=== PATIENT | male | born 1975 | race Caucasian/White ===

== ENCOUNTER → 2018-12-18 | Outpatient (CLI) | payer SELFPAY ==
--- NOTE | 2018-12-18 15:59 | REP ---
Clinical: Right upper chest wall pain Technique: Frontal view of the chest with five views of the right hemithorax. Findings: Frontal view of the chest demonstrates no acute cardiopulmonary process. Multiple views of the right hemithorax demonstrates no obvious acute rib fracture or pathology. Impression: Normal right rib series Electronically Signed by Landon Zhang MD 12/18/2018 03:51 P
== END ==
LOC: M LRY 15:19
PROVIDERS: ATTEND Physician Assistant
DX: R07.89 Other chest pain (principal)

== ENCOUNTER 2019-01-31 12:51 | Inpatient (IN) | payer BC, SELFPAY ==
[~2019-01-31] VITALS: Ht 172.7 cm; Wt 66.3 kg
[2019-01-31] MEDS: ASPIRIN 81 MG CHEW TABLET PO SCH (09:00)
[2019-01-31] MEDS ORDERED: IBUP-1022 PO (13:12)
[2019-01-31] MEDS ORDERED: METOCLOPRAMIDE INJ 10MG/2ML VIAL (J2765) IV ONE (15:30)
--- NOTE | 2019-01-31 15:48 | REP ---
CT Head without contrast HISTORY: Vertigo COMPARISON: None An area of decreased attenuation is present in the inferior left cerebellum. This represents an acute infarction. There is mass effect. The fourth ventricle e is midline in position. There is no intraparenchymal hemorrhage, mass or midline shift. The ventricular system is normal in appearance. There is no extra cerebral collection. There is no fracture. The visualized sinuses are clear. IMPRESSION: Acute left cerebellar infarction. There is no hemorrhage. Electronically Signed by Jorge Lomeli MD 01/31/2019 03:40 P
[2019-01-31 16:19] LABS: AMPHETAMINES LEVEL URINE NEGATIVE (NEGATIVE); BARBITURATES URINE NEGATIVE (NEGATIVE); BENZODIAZEPINES URINE NEGATIVE (NEGATIVE); CANNABINOIDS URINE POSITIVE (NEGATIVE); COCAINE METABOLITE URINE NEGATIVE (NEGATIVE); METHADONE URINE NEGATIVE (NEGATIVE); OPIATES URINE NEGATIVE (NEGATIVE); PHENCYCLIDINE URINE NEGATIVE (NEGATIVE)
[2019-01-31 16:57] LABS: HEMATOCRIT 44.3 % (42.0-52.0); MEAN CORPUSCULAR HEMOGLOBIN 31.1 pg (27.0-33.0); MEAN CORPUSCULAR HGB CONC 33.9 g/dl (32.0-36.5); MEAN CORPUSCULAR VOLUME 91.7 fl (80.0-96.0); PLATELET COUNT, AUTOMATED 218 10^3/uL (150-450); RED BLOOD COUNT 4.83 10^6/uL (4.30-6.10); WHITE BLOOD COUNT 6.8 10^3/uL (4.0-10.0)
[2019-01-31 17:23] LABS: ALBUMIN 3.7 GM/DL (3.2-5.2); ALT/SGPT 21 U/L (12-78); BILIRUBIN,TOTAL 0.4 MG/DL (0.2-1.0); BLOOD UREA NITROGEN 10 MG/DL (7-18); CARBON DIOXIDE LEVEL 28 MEQ/L (21-32); CHLORIDE LEVEL 109 MEQ/L (98-107); CREATININE FOR GFR 0.89 MG/DL (0.70-1.30); ETHYL ALCOHOL (ETHANOL) < 0.003 % (0.000-0.010); GLOMERULAR FILTRATION RATE > 60.0 (>60); GLUCOSE, FASTING 87 MG/DL (70-100); POTASSIUM SERUM 4.3 MEQ/L (3.5-5.1); SODIUM LEVEL 142 MEQ/L (136-145); TOTAL PROTEIN 6.3 GM/DL (6.4-8.2)
[2019-01-31] MEDS ORDERED: ASPIRIN 325 MG TAB PO ONE (17:45)
[2019-01-31] MEDS ORDERED: PROHANCE 279.3MG/ML 5ML VIAL (A9576) As Ordered ONE (18:19)
[2019-01-31] MEDS ORDERED: PROHANCE 279.3MG/ML 15ML VIAL (A9576) As Ordered ONE (18:19)
[2019-01-31] MEDS ORDERED: ACET1TAB55 PO (18:53)
[2019-01-31 19:05] VITALS: BP 123/94
[2019-01-31 19:13] LABS: APPEARANCE, URINE CLEAR (CLEAR); BACTERIA, URINE AUTO NEGATIVE (NEGATIVE); BILIRUBIN, URINE AUTO NEGATIVE (NEGATIVE); BLOOD, URINE BLOOD NEGATIVE (NEGATIVE); CALCIUM OXALATE CRYSTALS SMALL; COLOR, URINE YELLOW (YELLOW); GLUCOSE, URINE (UA) AUTO NEGATIVE (NEGATIVE); KETONE, URINE AUTO TRACE mg/dL (NEGATIVE); LEUKOCYTE ESTERASE, URINE AUTO NEGATIVE (NEGATIVE); MUCUS, URINE SMALL (NEGATIVE); NITRITE, URINE AUTO NEGATIVE (NEGATIVE); PROTEIN, URINE AUTO NEGATIVE (NEGATIVE); RBC, URINE AUTO 2 /HPF (0-3); SPECIFIC GRAVITY URINE AUTO 1.031 (1.002-1.035); SQUAMOUS EPITHELIAL CELL UR AU 0 /HPF (0-6); WBC, URINE AUTO 1 /HPF (0-3)
[2019-01-31] MEDS ORDERED: NICOTINE POLACRILEX 2 MG GUM PO PRN (19:15)
[2019-01-31] MEDS: NICOTINE 14 MG/24 HR TRANSDERMAL TD SCH (19:30)
--- NOTE | 2019-01-31 20:23 | IPN ---
DATE: 01/31/2019 SUBJECTIVE: Pt still c/o headache without radiation, blurred vision, diplopia. no c/o UE or LE weakness bilaterally. Per RN, h/a improved with po tylenol. OBJECTIVE: PHYSICAL EXAMINATION: VITAL SIGNS:pls see below GENERAL: Patient is awake, alert, oriented times three. Answering questions appropriately. HEENT: Pupils are round, reactive to light and accommodation. Extraocular muscles are intact. There is no horizontal or vertical nystagmus. Face is symmetric. LUNGS:CTAB air entry is equal B/L no wheezing, rales, or rhonchi. no kyphosis HEART:S1S2 sinus bradycardia no murmurs noted. ABD:(+) bs soft nontender nondistended no HSM EXT: no cyanosis, clubbing or edema NEURO: Patient is awake, alert, oriented times three. Answering questions appropriately. HEENT: Pupils are round, reactive to light and accommodation. Extraocular muscles are intact. Muscles are intact. There is no horizontal or vertical nystagmus. Face is symmetric. There is no facial drooping or asymmetry. Speech is fluent and choice of words are appropriate. There is no dysmetria on finger to nose testing. There is no pronator drift. Patient is noted to have 5 out of 5 motor strength in the bilateral upper and lower extremities. Deep tendon reflexes are intact. Recent and distant memory is intact. No facial weakness.Tongue and uvula are midline. Normal sensation throughout. There is no dysmetria. His gait is mildly unsteady and he is unable to do tandem walking. Plantars are downgoing. There is no tremor. EKG: Sinus bradycardia. Ventricular rate of 53. RI interval 180, QT of 422 and QTC of 404. LABORATORY DATA, IMAGING STUDIES, MICROBIOLOGY: PLS SEE BELOW On admission: White count 6.8, hemoglobin 15, hematocrit 44, platelet count 218. Sodium 142, potassium 4.3, chloride 109, bicarbonate 28, BUN 10, creatinine 0.89. Glucose 87, calcium 90, bilirubin 0.4, ALC 19, ALT 21, alkaline phosphatase of 70. Albumin 3.7. Urine toxicology screen positive for cannabinoids. Ethyl alcohol less than 0.003. Urinalysis is pending. CT of the head 01/31/2018 1523 hours. Areas of decreased attenuation in the inferior left cerebellum representing an acute infarct with mass effect. Fourth ventricle is midline in position. No intraparenchymal hemorrhage, mass or midline shift. Ventricular system is normal in appearance. There is no extracerebral collection. There is no fracture. There is no hemorrhage. MRI BRAIN 01/31/19: MRA BRAIN 01/31/19: MRA CAROTIDS 01/31/19: ASSESSMENT AND PLAN: This is a 43-year-old male with past medical history significant for 20 pack years of smoking, currently smoking a pack of cigarettes per day, kidney stones in the past and previous history of concussion presents to the emergency room with three day history of dizziness. 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 prompting him to kneel down due to the room spinning around him. He then subsequently developed a severe headache in the occipital area, a bit of blurred vision. The headache was described as dull and sharp at times without any radiation with some improvement after taking Tylenol 6 gel caps and ibuprofen. Patient felt very off balance and was swaying more to one side. The blurred vision improved. According to the , the patient was swaggering and he appeared to be much more lethargic laying on the couch more than he usually does. Patient otherwise denies any upper or lower extremity paresthesias or weakness. He denies any dysphagia, slurring of speech. Face was symmetric. He had a prior history of concussion some years ago and had an MRI done in [place]. Currently, evaluation in the ER included a CT of the head which showed a left cerebellar cerebrovascular accident (CVA) with no hemorrhage and some mass effect. According to the , patient was able to walk around, but was noted to be swaggering more to one side in the ER. EKG was sinus rhythm, ventricular rate of 53 with sinus bradycardia. Laboratory data were within normal limits, both CBC and CMP. Urine drug screen was positive for cannabinoids. Ethyl alcohol level was 0.003. Urinalysis is still pending. Hospitalist was called to admit. Subacute left cerebellar infarction. Patient has been given aspirin, Zocor. Blood pressure is within normal limits. reviewed MRI/MRA of the brain, MRA of the carotids transesophageal echocardiogram to rule out PFO. Hypercoagulable workup pending Dr. Hartmann has been consulted for transesophageal echo. He will be kept nothing by mouth (npo) after midnight. IV fluids to be given will NPO Neurochecks q4hrs. PT EVAL and treat. . Dr. Aparicio has been consulted. Old Right lacunar infarct. on ASA. bp is wnl. Active smoking. Tobacco cessation counseling has been provided. He is currently on a nicotine patch with nicotine gum as needed as well. History of kidney stones. Currently has no complaints of dysuria, hematuria or flank pain. Sinus bradycardia. Continue on telemetry for now. Recreational Drug use (+) Urine drug screen: cannabinoids Deep venous thrombosis (DVT) prophylaxis with subcutaneous Lovenox. DISPOSITION: After full workup, physical therapy for clearance. PFS to assist with self-pay ?no insurance. edited: 02/05/2019 [id number] irving PLUNKETT
--- NOTE | 2019-01-31 20:45 | REPVR ---
EXAM: MR Angiography Neck Without Contrast EXAM DATE/TIME: 01/31/2019 5:42 PM CLINICAL HISTORY: 43 years old, male; Signs and symptoms; Weakness; Additional info: Posterior CVA TECHNIQUE: Imaging protocol: Magnetic resonance angiography images of the neck without intravenous contrast. COMPARISON: MRA BRAIN W/O CONTRAST 01/31/2019 7:29 PM FINDINGS: Right common carotid artery: Normal. No significant stenosis. No dissection or occlusion. Right internal carotid artery: Normal. Extracranial segment is patent with no significant stenosis. No dissection or occlusion. Right external carotid artery: Normal. No significant stenosis. No dissection or occlusion. Right vertebral artery: Normal. No significant stenosis. No dissection or occlusion. Left common carotid artery: Normal. No significant stenosis. No dissection or occlusion. Left internal carotid artery: Normal. Extracranial segment is patent with no significant stenosis. No dissection or occlusion. Left external carotid artery: Normal. No significant stenosis. No dissection or occlusion. Left vertebral artery: Normal. No significant stenosis. No dissection or occlusion. IMPRESSION: No evidence of carotid or vertebral artery stenosis or dissection. COMMENT: Reference per NASCET criteria for degree of stenosis: Mild: less than 50% stenosis. Moderate: 50-69% stenosis. Severe: 70-94% stenosis. Near occlusion: 95-99% stenosis. Electronically signed by: Chato Saavedra On 01/31/2019 20:45:01 PM
--- NOTE | 2019-01-31 20:48 | REPVR ---
EXAM: MR Head Without Contrast EXAM DATE/TIME: 01/31/2019 5:42 PM CLINICAL HISTORY: 43 years old, male; Abnormal findings; Abnormal radiologic findings of head/skull; Ischemia; Additional info: Posterior CVA TECHNIQUE: Imaging protocol: MR of the head without contrast. COMPARISON: MRA BRAIN W/O CONTRAST 01/31/2019 7:29 PM, head CT 01/31/2019 FINDINGS: Brain: There is an infarct in the left inferior cerebellar hemisphere medially. This extends over a length of 5.5 cm. This this is an acute infarct is seen on DWI images and confirmed on ADC. Gradient echo images demonstrate no evidence of hemorrhage. There is a small old left thalamic lacunar infarct. No additional infarcts. No extra-axial collection. No mass. Ventricles: There is no hydrocephalus. Bones/joints: Unremarkable. Soft tissues: Normal. Sinuses: Normal as visualized. No acute sinusitis. Mastoid air cells: Normal as visualized. No mastoid effusion. Orbits: Unremarkable. Other vasculature: There are no abnormal flow voids. IMPRESSION: Acute left inferior medial cerebellar infarct as seen on recent comparison CT. Electronically signed by: Chato Saavedra On 01/31/2019 20:48:50 PM
--- NOTE | 2019-01-31 20:51 | REPVR ---
EXAM: MR Angiogram Head Without Contrast, Arteries EXAM DATE/TIME: 01/31/2019 5:42 PM CLINICAL HISTORY: 43 years old, male; Abnormal findings; Abnormal CT of the head; Additional info: Posterior CVA TECHNIQUE: Imaging protocol: MR angiogram head without contrast. Exam focused on the arteries. COMPARISON: CT Head without contrast 01/31/2019 3:21 PM FINDINGS: Right internal carotid artery: Unremarkable. Intracranial segment is patent with no significant stenosis. No aneurysm. Right anterior cerebral artery: Unremarkable. No occlusion or significant stenosis. No aneurysm. Right middle cerebral artery: Unremarkable. No occlusion or significant stenosis. No aneurysm. Right posterior cerebral artery: Unremarkable. No occlusion or significant stenosis. No aneurysm. Right vertebral artery: Unremarkable. No occlusion or significant stenosis. No aneurysm. Left internal carotid artery: Unremarkable. Intracranial segment is patent with no significant stenosis. No aneurysm. Left anterior cerebral artery: Unremarkable. No occlusion or significant stenosis. No aneurysm. Left middle cerebral artery: Unremarkable. No occlusion or significant stenosis. No aneurysm. Left posterior cerebral artery: Unremarkable. No occlusion or significant stenosis. No aneurysm. Left vertebral artery: Unremarkable. No occlusion or significant stenosis. No aneurysm. Basilar artery: Unremarkable. No occlusion or significant stenosis. No aneurysm. Brain: Both the left and right PICA are patent. No stenosis or occlusion is seen. IMPRESSION: No intracranial stenosis or occlusion. Electronically signed by: Chato Saavedra On 01/31/2019 20:51:33 PM
[2019-01-31] MEDS: ENOXAPARIN 40 MG/0.4 ML SYRINGE (J1650) SC SCH (20:58)
[2019-01-31] MEDS: SIMVASTATIN 40 MG TAB PO SCH (20:58)
[2019-01-31] MEDS: D5W/0.45% SODIUM CHLORIDE 1,000 ML IV SCH (20:58)
--- NOTE | 2019-01-31 21:07 | ECGEPIP ---
Stationary ECG Study [facility] - ED Test Date: 2019-01-31 Pat Name: PETRA YADAV Department: Room: - Gender: M Shop Mechanic: reina : [id number] Requested By: BAO Alvarez Order Number: [id number] Reading MD: Kellie Melchor Measurements Intervals [place] Rate: 53 P: 54 MA: 180 QRS: -18 QRSD: 106 T: 30 QT: 422 QTc: 396 Interpretive Statements SINUS BRADYCARDIA WITH SINUS ARRHYTHMIA NO PRIOR FOR COMPARISON Electronically Signed On 01-31-2019 21:06:43 EDT by Kellie Melchor
[2019-02-01] VITALS (10 sets, daily range): BP systolic 104–130; BP diastolic 58–89
[2019-02-01] MEDS: ACETAMINOPHEN 325 MG TAB PO ONE ×2 (03:30→04:23)
[2019-02-01] MEDS ORDERED: ACETAMINOPHEN TAB 650MG DOSE (2X325MG) PO ONE (04:30)
[2019-02-01 05:17] LABS: HEMATOCRIT 40.1 % (42.0-52.0); HEMOGLOBIN 13.5 g/dl (13.5-17.5); MEAN CORPUSCULAR HEMOGLOBIN 30.1 pg (27.0-33.0); MEAN CORPUSCULAR HGB CONC 33.7 g/dl (32.0-36.5); MEAN CORPUSCULAR VOLUME 89.3 fl (80.0-96.0); PLATELET COUNT, AUTOMATED 199 10^3/uL (150-450); RED BLOOD COUNT 4.49 10^6/uL (4.30-6.10); WHITE BLOOD COUNT 6.9 10^3/uL (4.0-10.0)
[2019-02-01 05:36] LABS: BLOOD UREA NITROGEN 13 MG/DL (7-18); CALCIUM LEVEL 7.8 MG/DL (8.5-10.1); CARBON DIOXIDE LEVEL 25 MEQ/L (21-32); CHLORIDE LEVEL 109 MEQ/L (98-107); CREATININE FOR GFR 0.84 MG/DL (0.70-1.30); GLOMERULAR FILTRATION RATE > 60.0 (>60); GLUCOSE, FASTING 110 MG/DL (70-100); POTASSIUM SERUM 4.1 MEQ/L (3.5-5.1); SODIUM LEVEL 140 MEQ/L (136-145)
[2019-02-01] MEDS: D5W/0.45% SODIUM CHLORIDE 1,000 ML IV SCH ×2 (06:41→15:50)
--- NOTE | 2019-02-01 07:13 | CR ---
DATE OF CONSULTATION: 01/31/2019 REFERRING PHYSICIAN: Dr. Tina Lagunas REASON FOR CONSULTATION: Severe headache and cerebellar stroke. HISTORY OF PRESENT ILLNESS: Norberto Mujica is a 43-year-old man who was at his baseline state of health until two days ago when he developed severe, 10/10 occipital headache associated with dizziness, lightheadedness, imbalance, photophobia, and phonophobia. His headache still continues and is 6/10 in intensity. He usually does not get headaches. He has neck pain since his headache. He denies any seizures, back pain, falls, loss of consciousness, head injuries, dysphagia, dysarthria, diplopia, or urinary incontinence. He came to emergency department where CT scan of his head showed 2 cm left cerebellar paramedian ischemic stroke with mild effacement of the fourth ventricle. His scan was reviewed. PAST MEDICAL HISTORY: None. CURRENT MEDICATIONS: None, but he will be started on aspirin 325 mg daily in the hospital. He already received a dose. ALLERGIES: PENICILLIN. SOCIAL HISTORY: He smokes one pack per day for the last 20 years. He drinks alcohol occasionally. He denies illicit drugs. FAMILY HISTORY: His uncle at age 43 due to heart attack. He has no family history of stroke. REVIEW OF SYSTEMS: All systems were reviewed and found be noncontributory except as mentioned in history of present illness. PHYSICAL EXAMINATION: Height 5 feet 9 inches, weight 160 pounds, blood pressure 129/72, respiratory rate 14, pulse 65. Heart: Regular rate and rhythm. Lungs: Clear to auscultation. Abdomen: Soft, nontender, nondistended. No pedal edema. No musculoskeletal abnormalities. No rash. No signs of meningeal irritation. The patient is awake, alert, oriented to place, person and time. Recent and distant memory is intact. Extraocular muscles are intact. No facial weakness. Tongue and uvula are midline. No nystagmus. 5/5 strength in upper extremities. Normal sensation throughout. There is no dysmetria. His gait is mildly unsteady and he is unable to do tandem walking. Plantars are downgoing. There is no tremor. ASSESSMENT: 1. Subacute left cerebellar ischemic stroke. 2. Headache related to above. 3. Dizziness and imbalance related to above. PLAN: 1. MRI and MRA brain and carotid/vertebral arteries. 2. Transesophageal echocardiogram. 3. Blood tests to rule out coagulopathy and vasculopathy. 4. Aspirin 325 mg by mouth daily and check fasting lipid profile in the morning. 5. Physical and occupational therapy and follow with our office in 2-4 weeks after hospital discharge.
--- NOTE | 2019-02-01 07:45 | IPNPDOC ---
Date Seen The patient was seen on 02/01/19. Progress Note SUBJECTIVE: Pt still c/o headache without radiation, blurred vision, diplopia. no c/o UE or LE weakness bilaterally. Per RN, h/a improved with po tylenol. OBJECTIVE: PHYSICAL EXAMINATION: VITAL SIGNS:pls see below TELE: Sinus bradycardia GENERAL: Patient is awake, alert, oriented times three. Answering questions appropriately. HEENT: Pupils are round, reactive to light and accommodation. Extraocular muscles are intact. There is no horizontal or vertical nystagmus. Face is symmetric. LUNGS:CTAB air entry is equal B/L no wheezing, rales, or rhonchi. no kyphosis HEART:S1S2 sinus bradycardia no murmurs noted. ABD:(+) bs soft nontender nondistended no HSM EXT: no cyanosis, clubbing or edema NEURO: Patient is awake, alert, oriented times three. Answering questions appropriately. HEENT: Pupils are round, reactive to light and accommodation. Extraocular muscles are intact. Muscles are intact. There is no horizontal or vertical nystagmus. Face is symmetric. There is no facial drooping or asymmetry. Speech is fluent and choice of words are appropriate. There is no dysmetria on finger to nose testing. There is no pronator drift. Patient is noted to have 5 out of 5 motor strength in the bilateral upper and lower extremities. Deep tendon reflexes are intact. Recent and distant memory is intact. No facial weakness.Tongue and uvula are midline. Normal sensation throughout. There is no dysmetria. His gait is mildly unsteady and he is unable to do tandem walking. Plantars are downgoing. There is no tremor. EKG: Sinus bradycardia. Ventricular rate of 53. ND interval 180, QT of 422 and QTC of 404. LABORATORY DATA, IMAGING STUDIES, MICROBIOLOGY: PLS SEE BELOW On admission: White count 6.8, hemoglobin 15, hematocrit 44, platelet count 218. Sodium 142, potassium 4.3, chloride 109, bicarbonate 28, BUN 10, creatinine 0.89. Glucose 87, calcium 90, bilirubin 0.4, ALC 19, ALT 21, alkaline phosphatase of 70. Albumin 3.7. Urine toxicology screen positive for cannabinoids. Ethyl alcohol less than 0.003. Urinalysis is pending. CT of the head 01/31/2018 1523 hours. Areas of decreased attenuation in the inferior left cerebellum representing an acute infarct with mass effect. Fourth ventricle is midline in position. No intraparenchymal hemorrhage, mass or midline shift. Ventricular system is normal in appearance. There is no extracerebral collection. There is no fracture. There is no hemorrhage. MRI BRAIN 01/31/19: MRA BRAIN 01/31/19: MRA CAROTIDS 01/31/19: ASSESSMENT AND PLAN: This is a 43-year-old male with past medical history significant for 20 pack years of smoking, currently smoking a pack of cigarettes per day, kidney stones in the past and previous history of concussion presents to the emergency room with three day history of dizziness. 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 prompting him to kneel down due to the room spinning around him. He then subsequently developed a severe headache in the occipital area, a bit of blurred vision. The headache was described as dull and sharp at times without any radiation with some improvement after taking Tylenol 6 gel caps and ibuprofen. Patient felt very off balance and was swaying more to one side. The blurred vision improved. According to the , the patient was swaggering and he appeared to be much more lethargic laying on the couch more than he usually does. Patient otherwise denies any upper or lower extremity paresthesias or weakness. He denies any dysphagia, slurring of speech. Face was symmetric. He had a prior history of concussion some years ago and had an MRI done in [place]. Currently, evaluation in the ER included a CT of the head which showed a left cerebellar cerebrovascular accident (CVA) with no hemorrhage and some mass effect. According to the , patient was able to walk around, but was noted to be swaggering more to one side in the ER. EKG was sinus rhythm, ventricular rate of 53 with sinus bradycardia. Laboratory data were within normal limits, both CBC and CMP. Urine drug screen was positive for cannabinoids. Ethyl alcohol level was 0.003. Urinalysis is still pending. Hospitalist was called to admit. Subacute left cerebellar infarction. Patient has been given aspirin, Zocor. Blood pressure is within normal limits. reviewed MRI/MRA of the brain, MRA of the carotids transesophageal echocardiogram to rule out PFO. Hypercoagulable workup pending Dr. Hartmann has been consulted for transesophageal echo. He will be kept nothing by mouth (npo) after midnight. IV fluids to be given will NPO Neurochecks q4hrs. PT EVAL and treat. . Dr. Aparicio has been consulted. Old Right lacunar infarct. on ASA. bp is wnl. Active smoking. Tobacco cessation counseling has been provided. He is currently on a nicotine patch with nicotine gum as needed as well. History of kidney stones. Currently has no complaints of dysuria, hematuria or flank pain. Sinus bradycardia. Continue on telemetry for now. Recreational Drug use (+) Urine drug screen: cannabinoids Deep venous thrombosis (DVT) prophylaxis with subcutaneous Lovenox. DISPOSITION: After full workup, physical therapy for clearance. PFS to assist with self-pay ?no insurance. A-FIB/CHADSVASC A-FIB History Current/History of A-Fib/PAF?: No Current Oral Anticoagulant The: No VS, I&O, 24H, Fishbone Vital Signs/I&O Vital Signs Date Time Temp Pulse Resp B/P (MAP) Pulse Ox O2 Delivery O2 Flow Rate FiO2 02/01/19 06:00 54 16 108/58 (75) 97 02/01/19 04:00 97.8 01/31/19 19:28 Room Air I&O- Last 24 Hours up to 6 AM 02/01/19 06:00 Intake Total 660 ml Output Total 450 ml Balance 210 ml Laboratory Data 24H LABS Laboratory Tests 2 01/31/19 15:34: Urine Appearance CLEAR, Urine Color YELLOW, Urine pH 5.0, Urine Specific [place] 1.031, Urine Protein NEGATIVE, Urine Glucose (UA) NEGATIVE, Urine Ketones TRACEH, Urine Urobilinogen 2.0H, Urine Bilirubin NEGATIVE, Urine Leukocyte Esterase NEGATIVE, Urine Blood NEGATIVE, Urine Nitrite NEGATIVE, Urine WBC (Auto) 1, Urine RBC (Auto) 2, Urine Hyaline Casts (Auto) 0, Urine Bacteria (Auto) NEGATIVE, Urine Squamous Epithelial Cells 0, Urine Calcium Oxalate Cryst (Auto) SMALL, Urine Mucus (Auto) SMALL, Urine Sperm (Auto) , Urine Amphetamines Screen NEGATIVE, Urine Benzodiazepines Screen NEGATIVE, Urine Opiates Screen NEGATIVE, Urine Methadone Screen NEGATIVE, Urine Barbiturates Screen NEGATIVE, Urine Phencyclidine Screen NEGATIVE, Urine Cocaine Metabolite Screen NEGATIVE, Urine Cannabinoids Screen POSITIVEH 01/31/19 16:40: Nucleated Red Blood Cells % (auto) 0.0, Anion Gap 5L, Glomerular Filtration Rate > 60.0, Blood Urea Nitrogen 10, Creatinine 0.89, Sodium Level 142, Potassium Level 4.3, Chloride Level 109H, Carbon Dioxide Level 28, Calcium Level 9.0, Aspartate Amino Transf (AST/SGOT) 19, Alanine Aminotransferase (ALT/SGPT) 21, Alkaline Phosphatase 70, Total Bilirubin 0.4, Total Protein 6.3L, Albumin 3.7, Albumin/Globulin Ratio 1.42, Ethyl Alcohol Level < 0.003 01/31/19 19:20: 02/01/19 04:58: Nucleated Red Blood Cells % (auto) 0.0, Anion Gap 6L, Glomerular Filtration Rate > 60.0, Blood Urea Nitrogen 13, Creatinine 0.84, Sodium Level 140, Potassium Level 4.1, Chloride Level 109H, Carbon Dioxide Level 25, Calcium Level 7.8L 02/01/19 07:27: CBC/BMP Laboratory Tests 01/31/19 16:40 Red Blood Count 4.83, Mean Corpuscular Volume 91.7, Mean Corpuscular Hemoglobin 31.1, Mean Corpuscular Hemoglobin Concent 33.9, Red Cell Distribution Width 11.6, Calcium Level 9.0, Aspartate Amino Transf (AST/SGOT) 19, Alanine Aminotransferase (ALT/SGPT) 21, Alkaline Phosphatase 70, Total Bilirubin 0.4, Total Protein 6.3 L, Albumin 3.7 02/01/19 04:58 Red Blood Count 4.49, Mean Corpuscular Volume 89.3, Mean Corpuscular Hemoglobin 30.1, Mean Corpuscular Hemoglobin Concent 33.7, Red Cell Distribution Width 11.7, Calcium Level 7.8 L KENDAL DEWITT MD February 01, 2019 07:43
--- NOTE | 2019-02-01 08:02 | HPEPDOC ---
[facility] Medical History & Physical Date of Admission January 31, 2019 History and Physical CHIEF COMPLAINT: Dizziness and Headache for 3 days HISTORY OF PRESENT ILLNESS: This is a 43-year-old male with past medical history significant for 20 pack years of smoking, currently smoking a pack of cigarettes per day, kidney stones in the past and previous history of concussion presents to the emergency room with three day history of dizziness. 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 prompting him to kneel down due to the room spinning around him. He then subsequently developed a severe headache in the occipital area, a bit of blurred vision. The headache was described as dull and sharp at times without any radiation with some improvement after taking Tylenol 6 gel caps and ibuprofen. Patient felt very off balance and was swaying more to one side. The blurred vision improved. According to the , the patient was swaggering and he appeared to be much more lethargic laying on the couch more than he usually does. Patient otherwise denies any upper or lower extremity paresthesias or weakness. He denies any dysphagia, slurring of speech. Face was symmetric. He had a prior history of concussion some years ago and had an MRI done in [place]. Currently, evaluation in the ER included a CT of the head which showed a left cerebellar cerebrovascular accident (CVA) with no hemorrhage and some mass effect. According to the , patient was able to walk around, but was noted to be swaggering more to one side in the ER. EKG was sinus rhythm, ventricular rate of 53 with sinus bradycardia. Laboratory data were within normal limits, both CBC and CMP. Urine drug screen was positive for cannabinoids. Ethyl alcohol level was 0.003. Urinalysis is still pending. Hospitalist was called to admit. PAST MEDICAL HISTORY: Kidney stones. Prior concussion. HOME MEDICATIONS: - as needed Tylenol and ibuprofen PAST SURGICAL HISTORY: None. SOCIAL HISTORY: with three children. Smokes cigarettes one pack a day since age of 21. ALLERGIES: AMOXICILLIN causing hives. FAMILY HISTORY: Mother decreased age 63 with diabetes, father with Guillain [place]. Sister his age 34. No medical problems. Maternal uncle at the age of 43 with heart problems. REVIEW OF SYSTEMS: Per HPI. 12-point system otherwise negative. PHYSICAL EXAMINATION: VITAL SIGNS:pls see below GENERAL: Patient is awake, alert, oriented times three. Answering questions appropriately. HEENT: Pupils are round, reactive to light and accommodation. Extraocular muscles are intact. There is no horizontal or vertical nystagmus. Face is symmetric. LUNGS:CTAB air entry is equal B/L no wheezing, rales, or rhonchi. no kyphosis HEART:S1S2 sinus bradycardia no murmurs noted. ABD:(+) bs soft nontender nondistended no HSM EXT: no cyanosis, clubbing or edema NEURO: Patient is awake, alert, oriented times three. Answering questions appropriately. HEENT: Pupils are round, reactive to light and accommodation. Extraocular muscles are intact. Muscles are intact. There is no horizontal or vertical nystagmus. Face is symmetric. There is no facial drooping or asymmetry. Speech is fluent and choice of words are appropriate. There is no dysmetria on finger to nose testing. There is no pronator drift. Patient is noted to have 5 out of 5 motor strength in the bilateral upper and lower extremities. Deep tendon reflexes are intact. Recent and distant memory is intact. No facial weakness.Tongue and uvula are midline. Normal sensation throughout. There is no dysmetria. His gait is mildly unsteady and he is unable to do tandem walking. Plantars are downgoing. There is no tremor. EKG: Sinus bradycardia. Ventricular rate of 53. [place] interval 180, QT of 422 and QTC of 404. LABORATORY DATA, IMAGING STUDIES, MICROBIOLOGY: PLS SEE BELOW On admission: White count 6.8, hemoglobin 15, hematocrit 44, platelet count 218. Sodium 142, potassium 4.3, chloride 109, bicarbonate 28, BUN 10, creatinine 0.89. Glucose 87, calcium 90, bilirubin 0.4, ALC 19, ALT 21, alkaline phosphatase of 70. Albumin 3.7. Urine toxicology screen positive for cannabinoids. Ethyl alcohol less than 0.003. Urinalysis is pending. CT of the head 01/31/2018 1523 hours. Areas of decreased attenuation in the inferior left cerebellum representing an acute infarct with mass effect. Fourth ventricle is midline in position. No intraparenchymal hemorrhage, mass or midline shift. Ventricular system is normal in appearance. There is no extracerebral collection. There is no fracture. There is no hemorrhage. MRI BRAIN 01/31/19: Brain: There is an infarct in the left inferior cerebellar hemisphere medially. This extends over a length of 5.5 cm. This this is an acute infarct is seen on DWI images and confirmed on ADC. Gradient echo images demonstrate no evidence of hemorrhage. There is a small old left thalamic lacunar infarct. No additional infarcts. No extra-axial collection. No mass. Ventricles: There is no hydrocephalus. Bones/joints: Unremarkable. Soft tissues: Normal. Sinuses: Normal as visualized. No acute sinusitis. Mastoid air cells: Normal as visualized. No mastoid effusion. Orbits: Unremarkable. Other vasculature: There are no abnormal flow voids. IMPRESSION: Acute left inferior medial cerebellar infarct as seen on recent comparison CT. MRA BRAIN 01/31/19: Right internal carotid artery: Unremarkable. Intracranial segment is patent with no significant stenosis. No aneurysm. Right anterior cerebral artery: Unremarkable. No occlusion or significant stenosis. No aneurysm. Right middle cerebral artery: Unremarkable. No occlusion or significant stenosis. No aneurysm. Right posterior cerebral artery: Unremarkable. No occlusion or significant stenosis. No aneurysm. Right vertebral artery: Unremarkable. No occlusion or significant stenosis. No aneurysm. Left internal carotid artery: Unremarkable. Intracranial segment is patent with no significant stenosis. No aneurysm. Left anterior cerebral artery: Unremarkable. No occlusion or significant stenosis. No aneurysm. Left middle cerebral artery: Unremarkable. No occlusion or significant stenosis. No aneurysm. Left posterior cerebral artery: Unremarkable. No occlusion or significant stenosis. No aneurysm. Left vertebral artery: Unremarkable. No occlusion or significant stenosis. No aneurysm. Basilar artery: Unremarkable. No occlusion or significant stenosis. No aneurysm. Brain: Both the left and right PICA are patent. No stenosis or occlusion is seen. IMPRESSION: No intracranial stenosis or occlusion. Electronically signed by: Chato Mendoza On 01/31/2019 20:51:33 PM DD: CHATO MENDOZA MD 01/31/191741 DT: ESTEFANY 01/31/192050 DS: TANISHA 01/31/192050 [~ rep ct labl] MRA CAROTIDS 01/31/19: Right common carotid artery: Normal. No significant stenosis. No dissection or occlusion. Right internal carotid artery: Normal. Extracranial segment is patent with no significant stenosis. No dissection or occlusion. Right external carotid artery: Normal. No significant stenosis. No dissection or occlusion. Right vertebral artery: Normal. No significant stenosis. No dissection or occlusion. Left common carotid artery: Normal. No significant stenosis. No dissection or occlusion. Left internal carotid artery: Normal. Extracranial segment is patent with no significant stenosis. No dissection or occlusion. Left external carotid artery: Normal. No significant stenosis. No dissection or occlusion. Left vertebral artery: Normal. No significant stenosis. No dissection or occlusion. IMPRESSION: No evidence of carotid or vertebral artery stenosis or dissection. COMMENT: ASSESSMENT AND PLAN: This is a 43-year-old male with past medical history significant for 20 pack years of smoking, currently smoking a pack of cigarettes per day, kidney stones in the past and previous history of concussion presents to the emergency room with three day history of dizziness. 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 prompting him to kneel down due to the room spinning around him. He then subsequently developed a severe headache in the occipital area, a bit of blurred vision. The headache was described as dull and sharp at times without any radiation with some improvement after taking Tylenol 6 gel caps and ibuprofen. Patient felt very off balance and was swaying more to one side. The blurred vision improved. According to the , the patient was swaggering and he appeared to be much more lethargic laying on the couch more than he usually does. Patient otherwise denies any upper or lower extremity paresthesias or weakness. He denies any dysphagia, slurring of speech. Face was symmetric. He had a prior history of concussion some years ago and had an MRI done in [place]. Currently, evaluation in the ER included a CT of the head which showed a left cerebellar cerebrovascular accident (CVA) with no hemorrhage and some mass effect. According to the , patient was able to walk around, but was noted to be swaggering more to one side in the ER. EKG was sinus rhythm, ventricular rate of 53 with sinus bradycardia. Laboratory data were within normal limits, both CBC and CMP. Urine drug screen was positive for cannabinoids. Ethyl alcohol level was 0.003. Urinalysis is still pending. Hospitalist was called to admit. Subacute left cerebellar infarction. Patient has been given aspirin, Zocor. Blood pressure is within normal limits. reviewed MRI/MRA of the brain, MRA of the carotids transesophageal echocardiogram to rule out PFO. Hypercoagulable workup pending Dr. Hartmann has been consulted for transesophageal echo. He will be kept nothing by mouth (npo) after midnight. IV fluids to be given will NPO Neurochecks q4hrs. PT EVAL and treat. . Dr. Aparicio has been consulted. Old Right lacunar infarct. on ASA. bp is wnl. Active smoking. Tobacco cessation counseling has been provided. He is currently on a nicotine patch with nicotine gum as needed as well. History of kidney stones. Currently has no complaints of dysuria, hematuria or flank pain. Sinus bradycardia. Continue on telemetry for now. Recreational Drug use (+) Urine drug screen: cannabinoids Deep venous thrombosis (DVT) prophylaxis with subcutaneous Lovenox. DISPOSITION: After full workup, physical therapy for clearance. PFS to assist with self-pay ?no insurance. Vital Signs Vital Signs Date Time Temp Pulse Resp B/P (MAP) Pulse Ox O2 Delivery O2 Flow Rate FiO2 02/01/19 06:00 54 16 108/58 (75) 97 02/01/19 04:00 97.8 01/31/19 19:28 Room Air Laboratory Data Labs 24H Laboratory Tests 2 01/31/19 15:34: Urine Appearance CLEAR, Urine Color YELLOW, Urine pH 5.0, Urine Specific [place] 1.031, Urine Protein NEGATIVE, Urine Glucose (UA) NEGATIVE, Urine Ketones TRACEH, Urine Urobilinogen 2.0H, Urine Bilirubin NEGATIVE, Urine Leukocyte Esterase NEGATIVE, Urine Blood NEGATIVE, Urine Nitrite NEGATIVE, Urine WBC (Auto) 1, Urine RBC (Auto) 2, Urine Hyaline Casts (Auto) 0, Urine Bacteria (Auto) NEGATIVE, Urine Squamous Epithelial Cells 0, Urine Calcium Oxalate Cryst (Auto) SMALL, Urine Mucus (Auto) SMALL, Urine Sperm (Auto) , Urine Amphetamines Screen NEGATIVE, Urine Benzodiazepines Screen NEGATIVE, Urine Opiates Screen NEGATIVE, Urine Methadone Screen NEGATIVE, Urine Barbiturates Screen NEGATIVE, Urine Phencyclidine Screen NEGATIVE, Urine Cocaine Metabolite Screen NEGATIVE, Urine Cannabinoids Screen POSITIVEH 01/31/19 16:40: Nucleated Red Blood Cells % (auto) 0.0, Anion Gap 5L, Glomerular Filtration Rate > 60.0, Blood Urea Nitrogen 10, Creatinine 0.89, Sodium Level 142, Potassium Level 4.3, Chloride Level 109H, Carbon Dioxide Level 28, Calcium Level 9.0, Aspartate Amino Transf (AST/SGOT) 19, Alanine Aminotransferase (ALT/SGPT) 21, Alkaline Phosphatase 70, Total Bilirubin 0.4, Total Protein 6.3L, Albumin 3.7, Albumin/Globulin Ratio 1.42, Ethyl Alcohol Level < 0.003 01/31/19 19:20: 02/01/19 04:58: Nucleated Red Blood Cells % (auto) 0.0, Anion Gap 6L, Glomerular Filtration Rate > 60.0, Blood Urea Nitrogen 13, Creatinine 0.84, Sodium Level 140, Potassium Level 4.1, Chloride Level 109H, Carbon Dioxide Level 25, Calcium Level 7.8L 02/01/19 07:27: CBC/BMP Laboratory Tests 01/31/19 16:40 Red Blood Count 4.83, Mean Corpuscular Volume 91.7, Mean Corpuscular Hemoglobin 31.1, Mean Corpuscular Hemoglobin Concent 33.9, Red Cell Distribution Width 11.6, Calcium Level 9.0, Aspartate Amino Transf (AST/SGOT) 19, Alanine Aminotransferase (ALT/SGPT) 21, Alkaline Phosphatase 70, Total Bilirubin 0.4, Total Protein 6.3 L, Albumin 3.7 02/01/19 04:58 Red Blood Count 4.49, Mean Corpuscular Volume 89.3, Mean Corpuscular Hemoglobin 30.1, Mean Corpuscular Hemoglobin Concent 33.7, Red Cell Distribution Width 11.7, Calcium Level 7.8 L Home Medications Scheduled PRN Acetaminophen (Acetaminophen) 325 Mg Tablet, 650 MG PO q4-6h PRN for PAIN Allergies Coded Allergies: amoxicillin (Verified Allergy, Unknown, 01/31/19) A-FIB/CHADSVASC A-FIB History Current/History of A-Fib/PAF?: No Current Oral Anticoagulant The: No KENDAL DEWITT MD February 01, 2019 07:46
[2019-02-01] MEDS: ASPIRIN 81 MG CHEW TABLET PO SCH (08:58)
[2019-02-01] MEDS: NICOTINE 14 MG/24 HR TRANSDERMAL TD SCH (09:00)
[2019-02-01] MEDS: ACETAMINOPHEN TAB 650MG DOSE (2X325MG) PO PRN (12:31)
[2019-02-01] MEDS ORDERED: LIDOCAINE 2% INJ 100 MG/5 ML SDV (FOR ANES.) As Ordered ONE (18:21)
[2019-02-01] MEDS ORDERED: PROPOFOL 200 MG/20 ML VIAL As Ordered ONE (18:21)
[2019-02-01] MEDS ORDERED: MIDAZOLAM INJ 2 MG/2 ML VIAL (J2250) As Ordered ONE (18:24)
[2019-02-01] MEDS ORDERED: CETACAINE SPRAY 5GM As Ordered ONE (18:49)
--- NOTE | 2019-02-01 20:14 | T-ECHO ---
DATE OF PROCEDURE: 02/01/2019 PREPROCEDURE DIAGNOSIS: Cryptogenic stroke (acute stroke). POSTPROCEDURE DIAGNOSIS: Cryptogenic stroke (acute stroke) and presence of patent foramen ovale. PRINCIPAL FINDING: Moderate size patent foramen ovale with right atrium to left atrium shunting via patent foramen ovale (PFO) occurring under resting conditions. PROCEDURE: Transesophageal echocardiogram with bubble study. PROCEDURE PERFORMED BY: Chip Hartmann MD LATHE SANDER: None. ANESTHESIA: (IV conscious sedation), monitored anesthetic care provided by CONCESSIONIST using propofol. COMPLICATIONS: None. DESCRIPTION OF PROCEDURE: The patient received Cetacaine [place] to the back of the pharynx. He then received propofol as administered by the CONCESSIONIST. Esophageal intubation was accomplished without difficulty by Dr. Hartmann using a [place] three-dimensional transesophageal echocardiogram probe. Rhythm was sinus. The left and right ventricles appeared normal in size and systolic function and normal in thickness. No regional wall motion abnormalities. Left ventricle ejection fraction was 60% by visual estimate. Atria appeared normal in size by visual assessment. No masses or thrombi were seen within the atria or their appendages. Aortic valve was 3-cusp and was structurally and functionally normal. Mitral valve was structurally and functionally normal with very mild mitral regurgitation, within normal limits. Tricuspid valve was structurally and functionally normal. No tricuspid regurgitation. Pulmonic valve was structurally and functionally normal with mild pulmonic regurgitation, within normal limits. No patent ductus arteriosus by color flow Doppler. Atrial septum showed the presence of a patent foramen ovale, and this was further confirmed with a bubble study showing bubbles of moderate extent crossing from the right atrium to the left atrium via the PFO under resting conditions. The bubble study was performed using 8 mL of normal saline, 1 mL of propofol and 1 mL of air, which was agitated by syringing back and forth across the three-way stopcock between two 10 mL syringes. This entire volume was then injected into a right antecubital vein. Pulmonary venous connections to the left atrium were normal. Pulmonary vein flow by pulse wave Doppler was normal in the left upper pulmonary vein. CONCLUSIONS: 1. Moderate size patent foramen ovale with moderate bubble contrast shunting from right atrium to left atrium via the PFO under resting conditions. 2. Otherwise normal appearing transesophageal echocardiogram. 3. Normal left ventricle size and systolic function. Left ventricular ejection fraction (LVEF) 60% by visual estimate. 4. Normal appearing distal aortic arch and descending thoracic aorta.
[2019-02-01] MEDS: SIMVASTATIN 40 MG TAB PO SCH (21:20)
[2019-02-01] MEDS: ENOXAPARIN 40 MG/0.4 ML SYRINGE (J1650) SC SCH (21:41)
[2019-02-02] MEDS: ACETAMINOPHEN TAB 650MG DOSE (2X325MG) PO PRN (01:58)
[2019-02-02 04:00] VITALS: BP 119/65
[2019-02-02 05:12] LABS: HEMATOCRIT 41.4 % (42.0-52.0); HEMOGLOBIN 14.1 g/dl (13.5-17.5); MEAN CORPUSCULAR HEMOGLOBIN 30.8 pg (27.0-33.0); MEAN CORPUSCULAR HGB CONC 34.1 g/dl (32.0-36.5); MEAN CORPUSCULAR VOLUME 90.4 fl (80.0-96.0); PLATELET COUNT, AUTOMATED 206 10^3/uL (150-450); RED BLOOD COUNT 4.58 10^6/uL (4.30-6.10); WHITE BLOOD COUNT 9.7 10^3/uL (4.0-10.0)
[2019-02-02 05:27] LABS: BLOOD UREA NITROGEN 11 MG/DL (7-18); CALCIUM LEVEL 8.2 MG/DL (8.5-10.1); CARBON DIOXIDE LEVEL 25 MEQ/L (21-32); CHLORIDE LEVEL 111 MEQ/L (98-107); CREATININE FOR GFR 0.78 MG/DL (0.70-1.30); GLOMERULAR FILTRATION RATE > 60.0 (>60); GLUCOSE, FASTING 112 MG/DL (70-100); POTASSIUM SERUM 3.9 MEQ/L (3.5-5.1); SODIUM LEVEL 142 MEQ/L (136-145)
[2019-02-02] MEDS ORDERED: NICO14PA TD (06:42)
[2019-02-02] MEDS ORDERED: ASPI81CH8 PO (06:42)
[2019-02-02] MEDS ORDERED: D5W/0.45% SODIUM CHLORIDE 1,000 ML IV SCH (06:44)
--- NOTE | 2019-02-02 06:55 | DS.PDOC ---
Discharge Summary General Date of Admission January 31, 2019 at 17:42 Date of Discharge February 02, 2019 Discharge Summary PROCEDURES PERFORMED DURING STAY: TRANSESOPHAGEAL ECHOCARDIOGRAM 02/01/19 CONSULTANTS: DR. NRAAYAN APARICIO, NEUROLOGIST DR. SCOTT, BROKER ASSISTANT(TRANSESOPHAGEAL ECHOCARDIOGRAM) ADMITTING DIAGNOSES: 1. DIZZINESS 2. HEADACHE 3. ACTIVE TOBACCO ABUSE 4. GAIT ATAXIA DISCHARGE DIAGNOSES: 1. LEFT CEREBELLAR CVA 2. MODERATE-SIZED PATENT FORAMEN OVALE 3. ACTIVE TOBACCO ABUSE 4. HEADACHE SECONDARY TO CVA 5. HISTORY OF KIDNEY STONES 6. REMOTE HISTORY OF CONCUSSION 7. URINE TOXICOLOGY POSITIVE FOR CANNABINOIDS DISCHARGE MEDICATIONS: PLS SEE BELOW DIET: NPO. D51/2NS AT 100ML/HR HISTORY OF PRESENTING ILLNESS: This is a 43-year-old male with past medical history significant for 20 pack years of smoking, currently smoking a pack of cigarettes per day, kidney stones in the past and previous history of concussion presents to the emergency room with three day history of dizziness. 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 prompting him to kneel down due to the room spinning around him. He then subsequently developed a severe headache in the occipital area, a bit of blurred vision. The headache was described as dull and sharp at times without any radiation with some improvement after taking Tylenol 6 gel caps and ibuprofen. Patient felt very off balance and was swaying more to one side. The blurred vision improved. According to the , the patient was swaggering and he appeared to be much more lethargic laying on the couch more than he usually does. Patient otherwise denies any upper or lower extremity paresthesias or weakness. He denies any dysphagia, slurring of speech. Face was symmetric. He had a prior history of concussion some years ago and had an MRI done in [place]. Currently, evaluation in the ER included a CT of the head which showed a left cerebellar cerebrovascular accident (CVA) with no hemorrhage and some mass effect. According to the , patient was able to walk around, but was noted to be swaggering more to one side in the ER. EKG was sinus rhythm, ventricular rate of 53 with sinus bradycardia. Laboratory data were within normal limits, both CBC and CMP. Urine drug screen was positive for cannabinoids. Ethyl alcohol level was 0.003. Urinalysis is still pending. Hospitalist was called to admit. HOSPITAL COURSE: Subacute left cerebellar infarction. Patient has been given aspirin, s/p Zocor, lovenox for DVT prophylaxis. Blood pressure is within normal limits. reviewed MRI/MRA of the brain, MRA of the carotids transesophageal echocardiogram: MODERATE sized PFO. Hypercoagulable workup pending Admissions Officer television reporter, Dr. Hartmann, has been consulted for transesophageal echo. He will be kept nothing by mouth (npo) after midnight. IV fluids to be given will NPO Neurochecks q4hrs. Neurologist, Dr. Aparicio has been consulted. tobacco cessation counselling has been provided. nicotine gum prn, and nicotine patch. Pt and family agree with transfer to [facility] for closure of PFO. Old Right lacunar infarct. on ASA. bp is wnl. Active smoking. Tobacco cessation counseling has been provided. He is currently on a nicotine patch with nicotine gum as needed as well. Headache secondary to CVA no edema or hemorrhage on CT Brain. Pt still c/o headache without radiation, blurred vision, diplopia. no c/o UE or LE weakness bilaterally. Per RN, h/a improved with po tylenol. History of kidney stones. Currently has no complaints of dysuria, hematuria or flank pain. Sinus bradycardia. Continue on telemetry for now. Recreational Drug use (+) Urine drug screen: cannabinoids Deep venous thrombosis (DVT) prophylaxis with subcutaneous Lovenox held due to surgical evaluation for closure of PFO. compression stockings. DISPOSITION: TRANSFER TO [facility] DR. FULLER FOR CLOSURE OF MODERATE PFO. DISCHARGE PHYSICAL EXAMINATION: VITAL SIGNS:pls see below TELE: Sinus bradycardia GENERAL: Patient is awake, alert, oriented times three. Answering questions appropriately. HEENT: Pupils are round, reactive to light and accommodation. Extraocular muscles are intact. There is no horizontal or vertical nystagmus. Face is symmetric. LUNGS:CTAB air entry is equal B/L no wheezing, rales, or rhonchi. no kyphosis HEART:S1S2 sinus bradycardia no murmurs noted. ABD:(+) bs soft nontender nondistended no HSM EXT: no cyanosis, clubbing or edema NEURO: Patient is awake, alert, oriented times three. Answering questions appropriately.Pupils are round, reactive to light and accommodation. Extraocular muscles are intact. Muscles are intact. There is no horizontal or vertical nystagmus. Face is symmetric. There is no facial drooping or asymmetry. Speech is fluent and choice of words are appropriate. There is no dysmetria on finger to nose testing. There is no pronator drift. Patient is noted to have 5 out of 5 motor strength in the bilateral upper and lower extremities. Deep tendon reflexes are intact. Recent and distant memory is intact. No facial weakness.Tongue and uvula are midline. Normal sensation throughout. There is no dysmetria. His gait is mildly unsteady and he is unable to do tandem walking. Plantars are downgoing. There is no tremor. EKG: Sinus bradycardia. Ventricular rate of 53. CA interval 180, QT of 422 and QTC of 404. LABORATORY DATA, IMAGING STUDIES, MICROBIOLOGY: PLS SEE BELOW On admission: White count 6.8, hemoglobin 15, hematocrit 44, platelet count 218. Sodium 142, potassium 4.3, chloride 109, bicarbonate 28, BUN 10, creatinine 0.89. Glucose 87, calcium 90, bilirubin 0.4, ALC 19, ALT 21, alkaline phosphatase of 70. Albumin 3.7. Urine toxicology screen positive for cannabinoids. Ethyl alcohol less than 0.003. TRANSESOPHAGEAL ECHOCARDIOGRAM 02/01/19 -DR. SCOTT CONCLUSIONS: 1. Moderate size patent foramen ovale with moderate bubble contrast shunting from right atrium to left atrium via the PFO under resting conditions. 2. Otherwise normal appearing transesophageal echocardiogram. 3. Normal left ventricle size and systolic function. Left ventricular ejection fraction (LVEF) 60% by visual estimate. 4. Normal appearing distal aortic arch and descending thoracic aorta. DD: Chip Hartmann MD [facility] 02/01/191924 DT: [facility] 02/01/191944 DS: JERODDA 02/01/192220 <Electronically signed by Chip Hartmann MD> 02/01/192220 CT of the head 01/31/2019 1523 hours. Areas of decreased attenuation in the inferior left cerebellum representing an acute infarct with mass effect. Fourth ventricle is midline in position. No intraparenchymal hemorrhage, mass or midline shift. Ventricular system is normal in appearance. There is no extracerebral collection. There is no fracture. There is no hemorrhage. RI BRAIN 01/31/19: Brain: There is an infarct in the left inferior cerebellar hemisphere medially. This extends over a length of 5.5 cm. This this is an acute infarct is seen on DWI images and confirmed on ADC. Gradient echo images demonstrate no evidence of hemorrhage. There is a small old left thalamic lacunar infarct. No additional infarcts. No extra-axial collection. No mass. Ventricles: There is no hydrocephalus. Bones/joints: Unremarkable. Soft tissues: Normal. Sinuses: Normal as visualized. No acute sinusitis. Mastoid air cells: Normal as visualized. No mastoid effusion. Orbits: Unremarkable. Other vasculature: There are no abnormal flow voids. IMPRESSION: Acute left inferior medial cerebellar infarct as seen on recent comparison CT. MRA BRAIN 01/31/19: Right internal carotid artery: Unremarkable. Intracranial segment is patent with no significant stenosis. No aneurysm. Right anterior cerebral artery: Unremarkable. No occlusion or significant stenosis. No aneurysm. Right middle cerebral artery: Unremarkable. No occlusion or significant stenosis. No aneurysm. Right posterior cerebral artery: Unremarkable. No occlusion or significant stenosis. No aneurysm. Right vertebral artery: Unremarkable. No occlusion or significant stenosis. No aneurysm. Left internal carotid artery: Unremarkable. Intracranial segment is patent with no significant stenosis. No aneurysm. Left anterior cerebral artery: Unremarkable. No occlusion or significant stenosis. No aneurysm. Left middle cerebral artery: Unremarkable. No occlusion or significant stenosis. No aneurysm. Left posterior cerebral artery: Unremarkable. No occlusion or significant stenosis. No aneurysm. Left vertebral artery: Unremarkable. No occlusion or significant stenosis. No aneurysm. Basilar artery: Unremarkable. No occlusion or significant stenosis. No aneurysm. Brain: Both the left and right PICA are patent. No stenosis or occlusion is seen. IMPRESSION: No intracranial stenosis or occlusion. Electronically signed by: Chato Mendoza On 01/31/2019 20:51:33 PM DD: CHATO MENDOZA MD 01/31/191741 DT: ESTEFANY 01/31/192050 DS: TANISHA 01/31/192050 [~ rep ct labl] MRA CAROTIDS 01/31/19: Right common carotid artery: Normal. No significant stenosis. No dissection or occlusion. Right internal carotid artery: Normal. Extracranial segment is patent with no significant stenosis. No dissection or occlusion. Right external carotid artery: Normal. No significant stenosis. No dissection or occlusion. Right vertebral artery: Normal. No significant stenosis. No dissection or occlusion. Left common carotid artery: Normal. No significant stenosis. No dissection or occlusion. Left internal carotid artery: Normal. Extracranial segment is patent with no significant stenosis. No dissection or occlusion. Left external carotid artery: Normal. No significant stenosis. No dissection or occlusion. Left vertebral artery: Normal. No significant stenosis. No dissection or occlusion. IMPRESSION: No evidence of carotid or vertebral artery stenosis or dissection. TIME SPENT ON HOSPITAL DISCHARGE: 60 minutes Vital Signs/I&Os Vital Signs Date Time Temp Pulse Resp B/P (MAP) Pulse Ox O2 Delivery O2 Flow Rate FiO2 02/02/19 04:00 98.8 63 16 119/65 (83) 96 01/31/19 19:28 Room Air I&O- Last 24 Hours up to 6 AM 02/02/19 06:00 Intake Total 1220 ml Output Total 2750 ml Balance -1530 ml Laboratory Data Labs 24H Laboratory Tests 2 02/01/19 07:27: 02/02/19 04:51: Nucleated Red Blood Cells % (auto) 0.0, Anion Gap 6L, Glomerular Filtration Rate > 60.0, Blood Urea Nitrogen 11, Creatinine 0.78, Sodium Level 142, Potassium Level 3.9, Chloride Level 111H, Carbon Dioxide Level 25, Calcium Level 8.2L CBC/BMP Laboratory Tests 02/02/19 04:51 Red Blood Count 4.58, Mean Corpuscular Volume 90.4, Mean Corpuscular Hemoglobin 30.8, Mean Corpuscular Hemoglobin Concent 34.1, Red Cell Distribution Width 11.5, Calcium Level 8.2 L Discharge Medications Scheduled Aspirin (Children's Aspirin) 81 Mg Tab.chew, 81 MG PO DAILY Nicotine (Nicotine Patch) 14 Mg Patch.td24, 1 PATCH TD DAILY Allergies Coded Allergies: amoxicillin (Verified Allergy, Unknown, 01/31/19) KENDAL DEWITT MD February 02, 2019 06:49
[2019-02-02] MEDS: ASPIRIN 81 MG CHEW TABLET PO SCH (07:38)
[2019-02-02] MEDS: NICOTINE 14 MG/24 HR TRANSDERMAL TD SCH (07:39)
[2019-02-02 08:00] VITALS: BP 133/75
[2019-02-06 10:38] LABS: DRVV SCREEN 43.1 SEC; PTT LUPUS TYPE ANTICOAG SCREEN 1.1 (0-1.2)
== END 2019-02-02 08:38 | disposition short-term general hospital (02) | DRG 45 ==
LOC: M ED 12:51 → M ED INP 17:42 → M ICU 20:30 → M PCU 02-01 15:08
PROVIDERS: ADMIT General Practice; ATTEND General Practice
PROC: B246ZZ4 Ultrasonography of Right and Left Heart, Transesophageal (ICD-10-PCS; principal; 2019-02-01 08:17)
DX: I63.9 Cerebral infarction, unspecified (principal); Q21.1 Atrial septal defect; F17.200 Nicotine dependence, unspecified, uncomplicated; F12.90 Cannabis use, unspecified, uncomplicated; Z88.0 Allergy status to penicillin

== ENCOUNTER 2020-01-24 13:07 | Emergency (ER) | payer OTHER, SELFPAY ==
[~2020-01-24] VITALS: Ht 170.2 cm; Wt 68.3 kg
[~2020-01-24 13:07] MED LIST: ACET1TAB55 PO; ASPI81CH8 PO; IBUP-1022 PO; NICO14PA TD
--- NOTE | 2020-01-24 14:46 | REP ---
CT BRAIN WITHOUT CONTRAST: HISTORY: Recent dizziness. History of CVA, rule out acute changes. Comparison head CT study January 31, 2019. Comparison MRI study of the brain January 31, 2019. CT FINDINGS: There is a small zone of old encephalomalacia in the left inferior and medial cerebellum where prior CT and MR study showed an acute infarction pattern. There is a tiny old lacunar infarct in the left thalamus. No acute infarction is appreciated. There is no evidence of intracranial hemorrhage. No mass, extra-axial fluid collection, edema or midline shift is observed. The bony calvarium is intact. Visualized paranasal sinuses are clear. No intraorbital abnormality is seen. IMPRESSION: Old lacunar infarct left thalamus. Old cortical infarct left inferior medial cerebellar hemisphere. No acute intracranial abnormality. Electronically Signed by Cuco Ornelas MD 01/24/2020 03:33 P
[2020-01-24] MEDS ORDERED: CYCL-707 PO (15:33)
[2020-01-24] MEDS ORDERED: PRED20TA PO (15:33)
--- NOTE | 2020-01-24 15:44 | REP ---
LUMBOSACRAL SPINE: Five views of the lumbosacral spine performed. There is no compression fracture or malalignment with normal lumbar lordosis. There is moderate disc space narrowing with subchondral sclerosis and spurring, as well as sclerosis and spurring at the posterior facet joints, at L5-S1. The posterior elements are intact. IMPRESSION: Moderate degenerative changes L5-S1. No fracture or dislocation. Electronically Signed by Angel Linares MD 01/24/2020 03:48 P
[2020-01-24 15:46] VITALS: BP 114/83
== END 2020-01-24 15:44 | disposition home or self-care (01) ==
LOC: M ED 13:07
DX: M51.37 Other intervertebral disc degeneration, lumbosacral region (principal); M54.31 Sciatica, right side; R42 Dizziness and giddiness; Z86.73 Personal history of transient ischemic attack (TIA), and cerebral infarction without residual deficits; F17.210 Nicotine dependence, cigarettes, uncomplicated; Z88.1 Allergy status to other antibiotic agents; Z79.899 Other long term (current) drug therapy

== ENCOUNTER 2020-10-20 09:05 | Emergency (ER) | payer OTHER, SELFPAY ==
[~2020-10-20] VITALS: Ht 175.3 cm; Wt 67.8 kg
[~2020-10-20 09:05] MED LIST changes: +CYCL-707 PO; +PRED20TA PO
--- OUTSIDE RECORDS SUMMARY | 2020-10-20 09:10 | CCD ---
Author Author [facility] Organization [facility] Address Unknown Phone Unavailable Care Team Providers Care Material Control Supervisor Name Role Phone WINTER, M CHELLE CONCRETE PLANT LABORER Unavailable Unavailable WINTER, M CHELLE CONCRETE PLANT LABORER Unavailable Unavailable WINTER, M CHELLE CONCRETE PLANT LABORER Unavailable Unavailable WINTER, M CHELLE CONCRETE PLANT LABORER Unavailable Unavailable WINTER, M CHELLE CONCRETE PLANT LABORER Unavailable Unavailable WINTER, M CHELLE CONCRETE PLANT LABORER Unavailable Unavailable WINTER, M CHELLE CONCRETE PLANT LABORER Unavailable Unavailable WINTER, M CHELLE CONCRETE PLANT LABORER Unavailable Unavailable WINTER, M CHELLE CONCRETE PLANT LABORER Unavailable Unavailable WINTER, M CHELLE CONCRETE PLANT LABORER Unavailable Unavailable WINTER, M CHELLE CONCRETE PLANT LABORER Unavailable Unavailable WINTER, M CHELLE CONCRETE PLANT LABORER Unavailable Unavailable WINTER, M CHELLE CONCRETE PLANT LABORER Unavailable Unavailable WINTER, M CHELLE CONCRETE PLANT LABORER Unavailable Unavailable WINTER, M CHELLE CONCRETE PLANT LABORER Unavailable Unavailable WINTER, M CHELLE CONCRETE PLANT LABORER Unavailable Unavailable WINTER, M CHELLE CONCRETE PLANT LABORER Unavailable Unavailable WINTER, M CHELLE CONCRETE PLANT LABORER Unavailable Unavailable WINTER, M CHELLE CONCRETE PLANT LABORER Unavailable Unavailable WINTER, M CHELLE CONCRETE PLANT LABORER Unavailable Unavailable WINTER, M CHELLE CONCRETE PLANT LABORER Unavailable Unavailable WINTER, M CHELLE CONCRETE PLANT LABORER Unavailable Unavailable WINTER, M CHELLE CONCRETE PLANT LABORER Unavailable Unavailable WINTER, M CHELLE CONCRETE PLANT LABORER Unavailable Unavailable WINTER, M CHELLE CONCRETE PLANT LABORER Unavailable Unavailable WINTER, M CHELLE CONCRETE PLANT LABORER Unavailable Unavailable WINTER, M CHELLE CONCRETE PLANT LABORER Unavailable Unavailable WINTER, M CHELLE CONCRETE PLANT LABORER Unavailable Unavailable WINTER, M CHELLE CONCRETE PLANT LABORER Unavailable Unavailable WINTER, M CHELLE CONCRETE PLANT LABORER Unavailable Unavailable Re-disclosure Warning The records that you are about to access may contain information from federally-assisted alcohol or drug abuse programs. If such information is present, then the following federally mandated warning applies: This information has been disclosed to you from records protected by federal confidentiality rules (42 CFR part 2). The federal rules prohibit you from making any further disclosure of this information unless further disclosure is expressly permitted by the written consent of the person to whom it pertains or as otherwise permitted by 42 CFR part 2. A general authorization for the release of medical or other information is NOT sufficient for this purpose. The Federal rules restrict any use of the information to criminally investigate or prosecute any alcohol or drug abuse patient.The records that you are about to access may contain highly sensitive health information, the redisclosure of which is protected by Article 27-F of the [facility] Public Health law. If you continue you may have access to information: Regarding HIV / AIDS; Provided by facilities licensed or operated by the [facility] Office of Mental Health; or Provided by the [facility] Office for People With Developmental Disabilities. If such information is present, then the following [facility] mandated warning applies: This information has been disclosed to you from confidential records which are protected by state law. State law prohibits you from making any further disclosure of this information without the specific written consent of the person to whom it pertains, or as otherwise permitted by law. Any unauthorized further disclosure in violation of state law may result in a fine or fci sentence or both. A general authorization for the release of medical or other information is NOT sufficient authorization for further disc losure. Encounters Encounter Providers Location Date Indications Data Source(s ) Outpatient Attender: CHELLE CARD NP [facility] 06/18/2020 04:00:00 PM EDT [facility] ([facility] Insurance Providers Payer name Policy type / Coverage type Policy ID Covered alliance party ID Covered alliance party's relationship to pisano Policy [place] Plan Information SELF PAY ONLY [id number] SP [id number] [id number] SP [id number] MEDICAID [id number] Magui [id number] MEDICAID [id number] SELF PAY ONLY [id number] SP [id number] [place] PPO 302/307 [id number] SP [id number] Blue Cross Blue Shield Commercial [id number] Self [id number] BLUE CROSS BLUE SHIELD CO [id number] 18 [id number] BLUE CROSS BLUE SHIELD -PHYSICIAN [id number] 18 [id number] BLUE CROSS BLUE SHIELD -O/P [id number] 18 [id number] Blue Cross Blue Shield Commercial [id number] Self [id number] BLUE CROSS BLUE SHIELD -O/P [id number] 18 [id number] BLUE CROSS -O/P [id number] 18 [id number] WORKMANS COMPENSATION -O/P 999 18 999 Surgeries/Procedures Procedure Description Date Indications Data Source(s) Electrocardiogram Complete 06/18/2020 12:00:00 AM EDT [facility] ([facility] Electrocardiogram Complete 06/18/2020 12:00:00 AM EDT [facility] ([facility]) ECHO Complete, Congenital Cardiac Anomalies 06/18/2020 12:00:00 AM EDT [facility] ([facility]) Doppler Echocardiography Complete 06/18/2020 12:00:00 AM EDT [facility] ([facility] Doppler Color Flow Velocity Mapping 06/18/2020 12:00:0 0 AM EDT [facility] ([facility]) Results ID Date Data Source [id number] 08/04/2020 12:00:00 AM EST [facility] Name Value Range Interpretation Code Description Data Estela rce(s) Supporting Document(s) SARS-CoV2 Rapid Antigen [facility] This lab was ordered by [facility] and reported by [facility]. Procedure Vital Signs ID Date Data Source UNK Name Value Range Interpretation Code Description Data Source(s) Body surface area Derived from formula 1.82 m2 1.82 m2 [facility] ([facility]) Oxygen saturation in Arterial blood by Pulse oximetry 98 % 98 % [facility] ([facility] Body mass index (BMI) [Ratio] 22.0 kg/m2 22.0 k g/m2 [facility] ([facility] Body height 69 [in_i] 69 [in_i] [facility] ([facility] 5'9" Body weight 149.00 [lb_av] 149.00 [lb_av] [facility] T ([facility]) Heart rate 68 /min 68 /min [facility] ([facility]) Diastolic blood pressure 80 mm[Hg] 80 mm[Hg] [facility] ([facility]) Systolic blood pressure 110 mm[Hg] 110 mm[Hg] M [facility] ([facility])
--- OUTSIDE RECORDS SUMMARY | 2020-10-20 09:37 | CCD ---
Author Author [facility] Organization [facility] Address Unknown Phone Unavailable Care Team Providers Care Social Services Name Role Phone WINTER, M CHELLE MANAGER SPECIAL EVENTS Unavailable Unavailable WINTER, M CHELLE MANAGER SPECIAL EVENTS Unavailable Unavailable WINTER, M CHELLE MANAGER SPECIAL EVENTS Unavailable Unavailable WINTER, M CHELLE MANAGER SPECIAL EVENTS Unavailable Unavailable WINTER, M CHELLE MANAGER SPECIAL EVENTS Unavailable Unavailable WINTER, M CHELLE MANAGER SPECIAL EVENTS Unavailable Unavailable WINTER, M CHELLE MANAGER SPECIAL EVENTS Unavailable Unavailable WINTER, M CHELLE MANAGER SPECIAL EVENTS Unavailable Unavailable WINTER, M CHELLE MANAGER SPECIAL EVENTS Unavailable Unavailable WINTER, M CHELLE MANAGER SPECIAL EVENTS Unavailable Unavailable WINTER, M CHELLE MANAGER SPECIAL EVENTS Unavailable Unavailable WINTER, M CHELLE MANAGER SPECIAL EVENTS Unavailable Unavailable WINTER, M CHELLE MANAGER SPECIAL EVENTS Unavailable Unavailable WINTER, M CHELLE MANAGER SPECIAL EVENTS Unavailable Unavailable WINTER, M CHELLE MANAGER SPECIAL EVENTS Unavailable Unavailable WINTER, M CHELLE MANAGER SPECIAL EVENTS Unavailable Unavailable WINTER, M CHELLE MANAGER SPECIAL EVENTS Unavailable Unavailable WINTER, M CHELLE MANAGER SPECIAL EVENTS Unavailable Unavailable WINTER, M CHELLE MANAGER SPECIAL EVENTS Unavailable Unavailable WINTER, M CHELLE MANAGER SPECIAL EVENTS Unavailable Unavailable WINTER, M CHELLE MANAGER SPECIAL EVENTS Unavailable Unavailable WINTER, M CHELLE MANAGER SPECIAL EVENTS Unavailable Unavailable WINTER, M CHELLE MANAGER SPECIAL EVENTS Unavailable Unavailable WINTER, M CHELLE MANAGER SPECIAL EVENTS Unavailable Unavailable WINTER, M CHELLE MANAGER SPECIAL EVENTS Unavailable Unavailable WINTER, M CHELLE MANAGER SPECIAL EVENTS Unavailable Unavailable WINTER, M CHELLE MANAGER SPECIAL EVENTS Unavailable Unavailable WINTER, M CHELLE MANAGER SPECIAL EVENTS Unavailable Unavailable WINTER, M CHELLE MANAGER SPECIAL EVENTS Unavailable Unavailable WINTER, M CHELLE MANAGER SPECIAL EVENTS Unavailable Unavailable Re-disclosure Warning The records that [...] is protected by Article 27-F of the [facility] Public Health law. If you continue you may have access to information: Regarding HIV / AIDS; Provided by facilities licensed or operated by the [facility] Office of Mental Health; or Provided by the [facility] Office for People With Developmental Disabilities. If such information is present, then the following [facility] mandated warning applies: This information has been [...] law may result in a fine or shelter sentence or both. A general authorization for the release of medical or other information is NOT sufficient authorization for further disc losure. Encounters Encounter Providers Location Date Indications Data Source(s ) Outpatient Attender: CHELLE CARD NP [facility] 06/18/2020 04:00:00 PM EDT [facility] ([facility] Insurance Providers Payer name Policy type / Coverage type Policy ID Covered green party ID Covered green party's relationship to pisano Policy [place] Plan Information RAYA [id number] SP [id number] SELF PAY ONLY [id number] SP [id number] MEDICAID [id number] Magui [id number] MEDICAID [id number] SELF PAY ONLY [id number] SP [id number] [employer] PPO 302/307 [id number] SP [id number] Blue Cross Blue Shield Commercial [id number] Self [id number] BLUE CROSS BLUE SHIELD CO [id number] 18 [id number] BLUE CROSS BLUE SHIELD -PHYSICIAN [id number] 18 [id number] BLUE CROSS BLUE SHIELD -O/P [id number] 18 [id number] Blue Cross Blue Shield Commercial [id number] Self [id number] BLUE CROSS BLUE SHIELD -O/P [id number] 18 [id number] BLUE CROSS -O/P [id number] 18 [id number] WORKMANS COMPENSATION -O/P [phone] [id number] [phone] Surgeries/Procedures Procedure Description Date Indications Data Source(s) Electrocardiogram Complete 06/18/2020 12:00:00 AM EDT [facility] ([facility]) Electrocardiogram Complete 06/18/2020 12:00:00 AM EDT [facility] ([facility]) ECHO Complete, Congenital Cardiac Anomalies 06/18/2020 12:00:00 AM EDT [facility] ([facility]) Doppler Echocardiography Complete 06/18/2020 12:00:00 AM EDT [facility] ([facility]) Doppler Color Flow Velocity Mapping 06/18/2020 12:00:0 0 AM EDT [facility] ([facility]) Results ID Date Data Source [id number] 08/04/2020 12:00:00 AM EST [facility] Name Value Range Interpretation Code Description Data Estela rce(s) Supporting Document(s) SARS-CoV2 Rapid Antigen [facility] This lab was ordered by [facility] and reported by [facility]. Procedure Vital Signs ID Date Data Source UNK Name Value Range Interpretation Code Description Data Source(s) Body surface area Derived from formula 1.82 m2 1.82 m2 [facility] ([facility]) Oxygen saturation in Arterial blood by Pulse oximetry 98 % 98 % [facility] Body mass index (BMI) [Ratio] 22.0 kg/m2 22.0 k g/m2 [facility] ([facility]) Body height 69 [in_i] 69 [in_i] [facility] ([facility] 5'9" Body weight 149.00 [lb_av] 149.00 [lb_av] [facility] T ([facility]) Heart rate 68 /min 68 /min [facility] ([facility]) Diastolic blood pressure 80 mm[Hg] 80 mm[Hg] [facility] ([facility]) Systolic blood pressure 110 mm[Hg] 110 mm[Hg] Marco FROST ([facility])
[2020-10-20] MEDS ORDERED: KETOROLAC 60MG 2ML VIAL IM ONE (09:45)
--- NOTE | 2020-10-20 10:06 | REP ---
INDICATION: severe LBP into r hip. COMPARISON: None. TECHNIQUE: Axial noncontrast images of the lumbosacral spine from mid T12 through mid sacrum with coronal and sagittal reformations. This CT examination was performed using the following dose reduction techniques: Automated exposure control, adjustment of mA and/or kv according to the patient's size, and use of iterative reconstruction technique. FINDINGS: Alignment and lordosis maintained. Vertebral bodies are intact, and there is no evidence for acute fracture/compression injury or subluxation. The spinal canal is patent. There is a moderate to large right paracentral disc protrusion at the L4-5 level along with ligamentous hypertrophy causing moderate canal stenosis and effacement of the exiting right L4-5 nerve root cannot be excluded. There is a moderate posterior disc bulge at the L5-S1 level with ligamentous hypertrophy and facet arthropathy causing mild canal stenosis. No obvious nerve root impingement identified. IMPRESSION: Disc disease at L4-5 and to a lesser extent L5-S1. Findings require physical correlation and MRI should be considered for further investigation.. <Electronically signed by Landon Zhang > 10/20/20 [id number]
--- NOTE | 2020-10-20 10:17 | REP ---
INDICATION: calf pain, fmh bleeding disorder ro clot. COMPARISON: None. TECHNIQUE: Right lower extremity duplex venous sonography. FINDINGS: The deep veins are anechoic and fully compressible from the groin to the popliteal fossa in the right lower extremity. Color flow imaging is homogeneous. Spectral Doppler interrogation demonstrates intact respiratory variation in flow and normal manual augmentation of flow. There is no evidence of deep vein thrombosis. IMPRESSION: Negative right lower extremity duplex venous ultrasound. No evidence of deep vein thrombosis. <Electronically signed by Franicsco Ornelas > 10/20/20 1017
--- NOTE | 2020-10-20 10:43 | REP ---
INDICATION: severe r hip pain, difficulty walking COMPARISON: None. TECHNIQUE: AP and frog-lateral views of the right hip FINDINGS: Generalized age-related changes include subtle increased sclerosis to the acetabulum with minimal joint space narrowing. No further overt osteoarthritic or significant degenerative changes are appreciated. No evidence for acute or healed injury. Surrounding soft tissues are normal. IMPRESSION: Mild generalized age-related changes. <Electronically signed by Landon Zhang > 10/20/20 [id number]
--- NOTE | 2020-10-20 12:51 | REPVR ---
PROCEDURE INFORMATION: Exam: MR Lumbar Spine Without Contrast. Exam date and time: 10/20/2020 10:12 AM Age: 45 years old Clinical indication: Low back pain; Additional info: Severe disc disease and bulge seen on CT, pain down R leg TECHNIQUE: Imaging protocol: Multiplanar magnetic resonance images of the lumbar spine without intravenous contrast. COMPARISON: CT Spine, lumbar w/o contrast 10/20/2020 9:51 AM FINDINGS: Vertebrae: Vertebral body heights normal. No significant subluxation. There is disc desiccation at L4-L5 and L5-S1. There is disc height loss which is mild at L4-L5 and moderate at L5-S1. There are endplate degenerative marrow changes predominantly L4-L5 Vertebral body marrow signal is otherwise unremarkable. Spinal cord: Conus terminates at T12-L1 and appears normal in signal intensity without intrinsic or extrinsic lesion. L1-L2: There is no significant disc bulge. There is mild facet degeneration. There is no significant spinal stenosis. There is no significant neural foraminal narrowing. L2-L3: There is no significant disc bulge. There is mild facet degeneration. There is no significant spinal stenosis. There is no significant neural foraminal narrowing. L3-L4: There is no significant disc bulge. There is mild facet degeneration. There is no significant spinal stenosis. There is no significant neural foraminal narrowing. L4-L5: There is generalized disc bulge. There is a focal right paracentral and lower recess protrusion which narrows the L5 subarticular recess compresses the traversing nerve root. This also effaces thecal sac at level of descending S1 nerve root. There is mild facet degeneration. There is mild overall spinal stenosis. There is no significant neural foraminal narrowing. L5-S1: There is generalized disc bulge and broad-based shallow central protrusion. There is mild facet degeneration. There is no significant spinal stenosis. There is mild bilateral neural foraminal narrowing without evidence of neural foraminal nerve root impingement. Soft tissues: Unremarkable. IMPRESSION: L4-L5 shows right paracentral protrusion which appears to compress the descending L5 nerve root in subarticular recess and contact descending S1 nerve root in thecal sac. Electronically signed by: Amy Hopkins On 10/20/2020 12:50:43 PM
[2020-10-20] MEDS ORDERED: LIDO5DIS41 TOP (13:10)
[2020-10-20] MEDS ORDERED: KETO10TAB PO (13:10)
[2020-10-20 13:17] VITALS: BP 126/79
--- NOTE | 2020-10-20 15:46 | ED PDOC ---
Post-Departure Follow-Up mri ls spine faxed to dr devine for fu Edwige Hidalgo MD Oct 20, 2020 15:46
== END 2020-10-20 13:18 | disposition home or self-care (01) ==
LOC: M ED 09:05
DX: M51.37 Other intervertebral disc degeneration, lumbosacral region (principal); M51.17 Intervertebral disc disorders with radiculopathy, lumbosacral region; X58.XXXA Exposure to other specified factors, initial encounter; Y92.89 Other specified places as the place of occurrence of the external cause; Y93.89 Activity, other specified; Y99.0 Civilian activity done for income or pay; I69.30 Unspecified sequelae of cerebral infarction; Z87.442 Personal history of urinary calculi; R51.9 Headache, unspecified; F17.200 Nicotine dependence, unspecified, uncomplicated; Z79.82 Long term (current) use of aspirin; Z88.0 Allergy status to penicillin
CPT/HCPCS: 72131; 72148; 73502; 93971; 96372; 99283; J1885

== ENCOUNTER → 2020-10-31 | Outpatient (CLI) | payer OTHER ==
[~2020-10-31] MED LIST changes: +KETO10TAB PO; +LIDO5DIS41 TOP
[2020-10-31 09:40] LABS: PLATELET COUNT, AUTOMATED 190 10^3/uL (150-450)
[2020-10-31 09:55] LABS: INR 0.95; PROTHROMBIN TIME 12.9 SECONDS (12.5-14.3)
== END ==
LOC: M LAB 09:09
PROVIDERS: ATTEND Physician Assistant
DX: M47.817 Spondylosis without myelopathy or radiculopathy, lumbosacral region (principal)

== ENCOUNTER 2024-12-28 07:55 | Emergency (ER) | payer OTHER, SELFPAY ==
[~2024-12-28] VITALS: Ht 175.3 cm; Wt 69.8 kg
[2024-12-28 10:07] VITALS: BP 134/83; TEMP 97.8; O2SAT 97
== END 2024-12-28 10:10 | disposition home or self-care (01) ==
LOC: M ED 07:55
DX: D22.5 Melanocytic nevi of trunk (principal); L91.8 Other hypertrophic disorders of the skin; Z88.1 Allergy status to other antibiotic agents